=== PATIENT | female | born 1990 | race Caucasian/White ===

== ENCOUNTER 2017-09-11 17:10 | Emergency (ER) | payer OTHER ==
[~2017-09-11] VITALS: Ht 175.3 cm; Wt 77.1 kg
[~2017-09-11 17:10] MED LIST: ALBUTEROL0.09 MG/A1 INH; ALPRAZOLAM0.5 MG PO; ARMOUR THYROID30 MG PO; AZURETTE 28 DA1 EACH PO; FIORICET 300 MG1 CAP PO; FLEXERIL10 MG PO; IBU600 MG PO; LINZESS145 MCG; LORATADINE10 MG PO; METAXALONE800 MG PO; MOBIC15 MG PO; MULTIVITAMIN1 TAB PO; NEXIUM40 M1 PO; ORTHO TRI-CYCLE1 TA2 PO; PERCOCET 325 MG1 TA2 PO; RELPAX40 M1 PO; SKELAXIN800 MG PO; VITAMIN D50000 IU PO
--- NOTE | 2017-09-11 19:17 | ED GENERAL ADULT ---
History of Present Illness General Chief Complaint: Abdominal Pain/Flank Pain Stated Complaint: STOMACH PAIN Source: patient Exam Limitations: no limitations Vital Signs & Intake/Output Vital Signs & Intake/Output Vital Signs Date Time Temp Pulse Resp B/P B/P Pulse O2 O2 Flow FiO2 Mean Ox Delivery Rate 09/11 1952 97.0 88 18 130/80 97 Room Air Room Air 09/11 1722 96.5 97 18 137/86 96 Room Air ED Intake and Output 09/12 0000 09/11 1200 Intake Total Output Total Balance Patient 170 lb Weight Weight Reported by Patient Measurement Method Allergies Coded Allergies: pineapple (THROAT ITCHINESS 08/12/15) nitrofurantoin (From MACROBID) (ACID REFLUX WORSENS 08/12/15) Reconcile Medications Albuterol Sulfate (Albuterol Sulfate Hfa) 0.09 MG/Actuation NATALY 2 PUFF INH PRN EXERCISE ASTHMA (Reported) 90 MCG PER PUFF CYCLOBENZAPRINE HCL (Flexeril) 10 MG TAB 1 TAB PO 4 TIMES/DAY PRN MUSCLE SPASM DESOG-E.ESTRADIOL/E.ESTRADIOL (Azurette 28 Day Tablet) 1 TAB TAB 1 TAB PO DAILY CONTROL (Reported) Dicyclomine HCl 20 MG TABLET 1 TAB PO BID PRN abdominal pain Eletriptan Hydrobromide (Relpax 40MG) 40 MG TABLET 1 TAB PO PRN MIGRANE ( Reported) ERGOCALCIFEROL (VITAMIN D2) (Vitamin D2) 50,000 IU SGL 1 CAP PO Q2W SUPPLEMENT (Reported) Esomeprazole (Nexium) 40 MG CAP 1 CAP PO DAILY GI (Reported) Ibuprofen (Ibu) 600 MG TAB 1 TAB PO 4 TIMES/DAY PRN PAIN Linaclotide (Linzess) (Unknown Strength) CAP (Unknown Dose) UNKNOWN (Reported ) Loratadine 10 MG TABLET 1 TAB PO DAILY ALLERGIES (Reported) Meloxicam (Mobic) 15 MG TAB 1 TAB PO DAILY PAIN Metaxalone 800 MG TAB 1 TAB PO PRN MUSCLE RELAXER (Reported) Metaxalone 800 MG TAB 1 TAB PO TID PRN MUSCLE SPASM [id number]... TWENTY Multivitamin (Multiple Vitamins) 1 TAB TAB 1 TAB PO DAILY SUPPLEMENT ( Reported) OXYCODONE HCL/ACETAMINOPHEN (Percocet 5-325 MG Tablet) 325 MG/5 MG TAB 1 TAB PO TID PAIN Thyroid (Bridgman Thyroid) 30 MG TAB 1 TAB PO DAILY THYROID (Reported) Triage Note: PT TO ER C/C DIFFUSE ABD PAIN X 4 DAYS W/ DIARRHEA X 1 DAY. DENIES URINARY S/S. LMP LAST WEEK. APPEARS UNCOMFORTABLE. Triage Nurses Notes Reviewed? yes Onset: Gradual Duration: day(s): Timing: constant : No Patient currently breastfeeds: No HPI: 26 y/o female with h/o IBS, HTN, sunil's presenting with diffuse abd cramping and watery diarrhea x4 days. Reports pain is migratory, does not localize to a single spot. 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 No fevers, nausea, vomiting, dysuria, bloody stools, or melena. No recent travel, foul foods, or recent abx use. (Rebecca Munson) Past History Travel History Traveled to [place] past 21 day No Medical History Any Pertinent Medical History? see below for history Cardiovascular: hypertension Endocrine: Sunil's thyroiditis Surgical History Surgical History: N Psychosocial History What is your primary language Yoruba Tobacco Use: Never used Family History Hx Contributory? No (Rebecca Munson) Review of Systems Review of Systems Constitutional: Reports: no symptoms. EENTM: Reports: no symptoms. Respiratory: Reports: no symptoms. Cardiovascular: Reports: no symptoms. GI: Reports: abdominal pain, diarrhea. Denies: melena, nausea, bloody stool, vomiting. Genitourinary: Reports: no symptoms. Musculoskeletal: Reports: no symptoms. Skin: Reports: no symptoms. Neurological/Psychological: Reports: no symptoms. Hematologic/Endocrine: Reports: no symptoms. Immunologic/Allergic: Reports: no symptoms. (Rebecca Munson) Physical Exam Physical Exam General Appearance: well developed/nourished, no apparent distress, alert, awake , comfortable Head: atraumatic, normal appearance Eyes: Bilateral: normal appearance. Neck: normal inspection Respiratory: normal breath sounds, lungs clear Cardiovascular: regular rate/rhythm Gastrointestinal: soft, non-tender Back: normal inspection Extremities: normal inspection Neurologic/Psych: awake, alert, oriented x 3, normal gait, normal mood/affect Skin: intact, normal color, warm/dry Core Measures ACS in differential dx? No CVA/TIA Diagnosis: No Sepsis Present: No Sepsis Focused Exam Completed? No (Rebecca Munson) Progress Differential Diagnoses I considered the following diagnoses in my evaluation of the patient: [Viral colitis vs enteritis vs IBS flare, low concern for acute abdomen ] Plan of Care: Orders Procedure Date/time Status URINE 09/11 1730 Complete URINALYSIS 09/11 1730 Complete Laboratory Tests 09/11/17 1713: Urine Color STRAW, Urine Clarity CLEAR, Urine pH 6.5, Ur Specific [place] <= 1.005, Urine Protein NEG, Urine Ketones NEG, Urine Nitrite NEG, Urine Bilirubin NEG, Urine Urobilinogen 0.2, Ur Leukocyte Esterase NEG, Ur Microscopic EXAM NOT REQUIRED, Urine Hemoglobin NEG, Urine Glucose NEG, Urine Test NEGATIVE Urine unremarkable. Likely IBS flare vs viral syndrome. Abdomen is soft and non- tender. Low concern for acute abdomen. Counseled on supportive care and given rx bentyl, which she states has given good relief for prior IBS flares. Will f/u with PMD and given strict return precautions. Initial ED EKG: none (Rebecca Munson) Departure Departure Disposition: HOME OR SELF CARE Condition: Stable Clinical Impression Primary Impression: Abdominal pain Secondary Impressions: Diarrhea Referrals: Areli FERRARA,Ceasar Pfeiffer (PCP/Family) Additional Instructions: Take bentyl as needed. Maintain adequate fluid intake. Follow up with your primary care provider for re-evaluation. Return to the emergency department for any new or worsening symptoms. Departure Forms: Customer Survey General Discharge Information Prescriptions: Current Visit Scripts Dicyclomine HCl 1 TAB PO BID PRN abdominal pain #60 TAB (Rebecca Munson) PA/CUSTOMER RETENTION SPECIALIST Co-Sign Statement Statement: ED Attending supervision documentation- [] I saw and evaluated the patient. I have also reviewed all the pertinent lab results and diagnostic results. I agree with the findings and the plan of care as documented in the PA's/CUSTOMER RETENTION SPECIALIST's documentation. [X] I have reviewed the ED Record and agree with the PA's/CUSTOMER RETENTION SPECIALIST's documentation. [] Additions or exceptions (if any) to the PAs/CUSTOMER RETENTION SPECIALIST's note and plan are summarized below: [] (Cain FERRARA,Refugio Camacho) Critical Care Note Critical Care Note Critical Care Time: non-applicable (Rebecca Munson)
[2017-09-11] MEDS ORDERED: DICYCLOMINE HCL20 M1 PO (19:47)
[2017-09-11 19:52] VITALS: BP 130/80
[2017-11-17] MEDS ORDERED: AMLODIPINE BESYL5 M1 PO (10:53)
[2017-11-17] MEDS ORDERED: ONDANSETRON HCL8 MG PO (10:54)
[2017-11-17] MEDS ORDERED: REGLAN10 M1 PO (15:16)
== END 2017-09-11 19:53 ==
LOC: ERH 17:10
DX: R10.84 Generalized abdominal pain (principal); R19.7 Diarrhea, unspecified
CPT/HCPCS: 81003; 81025